=== PATIENT | female | born 1985 | race Caucasian/White ===

== ENCOUNTER 2016-07-02 19:11 | Emergency (ER) | payer OTHER ==
[2016-07-02 19:40] VITALS: RESP 18
[2016-07-02] MEDS ORDERED: ONDANSETRON ODT 4 MG TAB PO STA (20:04)
--- NOTE | 2016-07-02 20:07 | ED ---
Head Injury HPI - General Chief complaint: Head Injury Stated complaint: rt eye injury (baseball) Time Seen by Provider: 07/02/16 19:55 Source: patient, RN notes reviewed Mode of arrival: ambulatory Limitations: no limitations - History of Present Illness Initial comments: Patient is a 31-year-old female presents to the emergency room for evaluation of eye injury. Patient states yesterday she was playing baseball and was hit in the right eye with a baseball. Patient denies loss consciousness. Patient states her eye began to swell. Patient states she is having 5 out of 10 constant pain. Patient states today she is having continuing headache and nausea. Patient denies neck pain. Patient denies changes in vision. Patient denies ear pain or ringing in the ears. Patient states she was concerned about the nausea and headache so she decided to come here to be evaluated. Patient denies any other injuries during incident. Patient denies taking any blood thinners. - Related Data Home Medications Medication Instructions Recorded Confirmed Ibuprofen [Motrin] 800 mg PO DAILY PRN 07/02/16 07/02/16 Previous Rx's Medication Instructions Recorded Acetaminophen Tab [Tylenol Tab] 500 mg PO Q4H PRN #20 tablet 07/02/16 Ondansetron Odt [Zofran Odt] 4 mg PO Q8HR PRN #12 tab 07/02/16 Allergies/Adverse reactions: Allergies Allergy/AdvReac Type Severity Reaction Status Date / Time codeine phosphate Allergy Rash/Hives Verified 07/02/16 20:00 [From Tylenol-Codeine #3] chloraprep Allergy Rash/Hives Uncoded 07/02/16 19:39 Review of Systems ROS Statement: Those systems with pertinent positive or pertinent negative responses have been documented in the HPI. ROS Other: All systems not noted in ROS Statement are negative. Past Medical History Past Medical History: No Reported History History of Any Multi-Drug Resistant Organisms: None Reported Past Surgical History: Section Past Anesthesia/Blood Transfusion Reactions: No Reported Reaction Past Psychological History: Anxiety, Depression Smoking Status: Never smoker Past Alcohol Use History: None Reported Past Drug Use History: None Reported General Exam - General Exam Comments Initial Comments: Sitting in exam room, no acute distress. Limitations: no limitations General appearance: alert, in no apparent distress Eye exam: Present: PERRL, EOMI, periorbital tenderness, other (tenderness/edema on palpaing over inferior orbit and eccymosis surrounding the right eye. ) ENT exam: Present: normal exam, normal oropharynx, mucous membranes moist, TM's normal bilaterally, normal external ear exam Neck exam: Present: normal inspection Respiratory exam: Absent: respiratory distress Extremities exam: Present: normal inspection Back exam: Present: normal inspection Neurological exam: Present: alert, oriented X3, CN II-XII intact, normal gait Psychiatric exam: Present: normal affect, normal mood Skin exam: Present: warm, dry, intact, normal color. Absent: rash Course Vital Signs 07/02/16 19:36 Temperature 98.0 F Pulse Rate 88 Respiratory 18 Rate Blood Pressure 90/71 O2 Sat by Pulse 99 Oximetry Medical Decision Making - Medical Decision Making Patient is a 31-year-old female presents to the emergency room for evaluation of facial contusion from baseball. Patient complaining of nausea on continuing headache. Patient states she is feeling better after Zofran given. CT of brain and face negative for any acute findings. Sent patient home with Zofran advised to take Tylenol or Motrin for pain. Patient states she understands everything that was discussed with her. Return parameters discussed. Case discussed with Dr. Adams. - Radiology Data Radiology results: report reviewed, image reviewed Disposition Clinical Impression: Facial contusion Disposition: HOME SELF-CARE Condition: Good Instructions: Black Eye (ED), Head Injury (ED) Additional Instructions: Ice on and off for 10-15 minutes for the next 24-48 hours. Take Zofran as needed for nausea. Take Tylenol or Motrin as he for headache. Please follow- up with primary care provider for reevaluation in 24-48 hours.. If new symptoms develop or symptoms worsen, please return to the ER. Prescriptions: Ondansetron Odt [Zofran Odt] 4 mg PO Q8HR PRN #12 tab PRN Reason: Nausea Acetaminophen Tab [Tylenol Tab] 500 mg PO Q4H PRN #20 tablet PRN Reason: Pain Referrals: None,Stated [Primary Care Provider] - 1-2 days Time of Disposition: 21:04
--- NOTE | 2016-07-02 20:58 | CT ---
EXAMINATION TYPE: CT brain wo con DATE OF EXAM: 07/02/2016 8:52 PM COMPARISON: NONE HISTORY: Hit in right eye with baseball yesterday. Headache. CT DLP: 1470.00 mGycm Automated exposure control for dose reduction was used. FINDINGS: The ventricles and sulci appear normal. There is no mass effect nor midline shift. There is no sign o f intracranial hemorrhage. Calvarium is intact. IMPRESSION: Negative unenhanced head CT scan. No evidence of an orbital fracture.
--- NOTE | 2016-07-02 21:01 | CT ---
EXAMINATION TYPE: CT facial bones wo con DATE OF EXAM: 07/02/2016 8:52 PM COMPARISON: NONE HISTORY: Hit in right eye with baseball yesterday. Headache. CT DLP: 1470.00 mGycm Automated exposure control for dose reduction was used. TECHNIQUE: CT scan of the sinuses is performed without contrast, axial images are obtained, coronal r eformatted images are also reviewed. FINDINGS: The mandibular ring is intact. Zygomatic arches appear normal. Nasal bone appears intact. T here is mild mucosal thickening at the floor of the right maxillary sinus. There is no sign of a blow out fracture. There is no retro-orbital mass. There is mild soft tissue swelling anterior to the righ t zygoma. The globes are symmetric. IMPRESSION: There is right sided facial soft tissue swelling. No fracture seen. Minimal right maxilla ry sinusitis. No blowout fracture seen.
[2016-07-02 21:31] VITALS: BP 114/69; PULSE 83; TEMP 98.4
== END 2016-07-02 21:34 | disposition home or self-care (01) ==
LOC: EC 19:11
DX: S05.11XA Contusion of eyeball and orbital tissues, right eye, initial encounter (principal); R11.0 Nausea; Z88.5 Allergy status to narcotic agent; Z88.8 Allergy status to other drugs, medicaments and biological substances; W21.03XA Struck by baseball, initial encounter; Y93.64 Activity, baseball
CPT/HCPCS: 70450; 70486; 99283

== ENCOUNTER 2016-09-27 14:32 | Inpatient (IN) | payer MEDICAID, OTHER ==
--- NOTE | 2016-09-27 15:17 | ED ---
General Adult HPI - General Chief complaint: Psychiatric Symptoms Stated complaint: mental health Time Seen by Provider: 09/27/16 14:55 Source: patient Mode of arrival: ambulatory Limitations: no limitations - History of Present Illness Initial comments: She is a 31-year-old female with a past mental history of depression, self-harm behaviors and drug abuse. Patient came to the emergency department today because she is having suicidal thoughts. She states that she's been feeling that she is just "not good enough" and that she will never be happy again. She reports that these thoughts have led her to having suicidal thoughts. Patient denies any self-harm behaviors recently. She denies ever being inpatient for psychiatric care at this she states that she should have been here a long time ago to get help. Patient does state that she is currently under significant social stress because her boyfriend was recently arrested. Patient does admit to snorting methamphetamines last night. - Related Data Home Medications Medication Instructions Recorded Confirmed No Known Home Medications [No 09/27/16 09/27/16 Known Home Medications] Allergies Allergy/AdvReac Type Severity Reaction Status Date / Time codeine phosphate Allergy Rash/Hives Verified 09/27/16 15:15 [From Tylenol-Codeine #3] chloraprep Allergy Rash/Hives Uncoded 09/27/16 14:53 Review of Systems ROS Statement: Those systems with pertinent positive or pertinent negative responses have been documented in the HPI. ROS Other: All systems not noted in ROS Statement are negative. Constitutional: Denies: fever, chills Eyes: Denies: vision change Respiratory: Denies: cough, dyspnea Cardiovascular: Reports: palpitations. Denies: chest pain, dyspnea on exertion Endocrine: Denies: fatigue Gastrointestinal: Denies: abdominal pain, nausea, vomiting Genitourinary: Denies: urgency, dysuria, frequency, abnormal menses Musculoskeletal: Denies: back pain Skin: Denies: rash, lesions Neurological: Denies: headache, weakness, numbness, paresthesias Psychiatric: Reports: anxiety, depression. Denies: auditory hallucinations, visual hallucinations Hematological/Lymphatic: Denies: easy bleeding, easy bruising Past Medical History Past Medical History: No Reported History History of Any Multi-Drug Resistant Organisms: None Reported Past Surgical History: Section Additional Past Surgical History / Comment(s): c -section x3 Past Anesthesia/Blood Transfusion Reactions: No Reported Reaction Past Psychological History: Anxiety, Depression Smoking Status: Never smoker Past Alcohol Use History: None Reported, Occasional Past Drug Use History: Methamphetamine General Exam Limitations: no limitations General appearance: anxious Head exam: Present: atraumatic, normocephalic, normal inspection Eye exam: Present: PERRL Neck exam: Present: normal inspection. Absent: tenderness, meningismus, lymphadenopathy Respiratory exam: Present: normal lung sounds bilaterally. Absent: respiratory distress, wheezes, rales, rhonchi, stridor Cardiovascular Exam: Present: normal rhythm, tachycardia GI/Abdominal exam: Present: soft. Absent: distended, tenderness, guarding, rebound, rigid Rectal exam: Present: deferred Extremities exam: Present: full ROM Back exam: Present: normal inspection Neurological exam: Present: alert, oriented X3, CN II-XII intact Psychiatric exam: Present: depressed, agitated, anxious Skin exam: Present: warm, dry, intact Course Vital Signs 09/27/16 09/27/16 14:48 17:27 Temperature 97.3 F L 97.4 F L Pulse Rate 133 H 100 Respiratory 14 15 Rate Blood Pressure 132/96 124/77 O2 Sat by Pulse 98 99 Oximetry Medical Decision Making - Medical Decision Making Patient was seen and evaluated, history was obtained from patient Patient with suicidal thoughts, methamphetamine abuse Sitter at bedside Patient appears anxious, admits to methamphetamine use last night. Is noted to be tachycardic but denies chest pain, SOB or palpitations. Urinalysis, drug screen and test ordered Psych contacted to evaluate patient. Disposition Clinical Impression: Suicidal ideations Disposition: TRANSFER TO PSYCH HOSP/UNIT Condition: Good Referrals: None,Stated [Primary Care Provider] - 1-2 days Decision Date: 09/27/16 Decision Time: 17:43
[2016-09-27 18:41] LABS: Appearance,Urine Clear (Clear); Bilirubin,Urine Negative (Negative); Glucose,Urine (UA) Negative (Negative); Ketones,Urine 1+ (Negative); Leukocyte Esterase,Urine Negative (Negative); Nitrite,Urine Negative (Negative); Protein,Urine Negative (Negative); Specific Gravity,Urine 1.003 (1.001-1.035); UA Billing (MACRO vs. MICRO) CHEM; Urobilinogen,Urine <2.0 mg/dL (<2.0)
[2016-09-27] MEDS ORDERED: MAG HYDROX/AL HYDROX/SIMETH 30 ML CUP PO PRN (19:19)
[2016-09-27] MEDS ORDERED: ACETAMINOPHEN TAB 325 MG TAB PO PRN (19:19)
[2016-09-27] MEDS ORDERED: MAGNESIUM HYDROXIDE 2,400 MG/10 ML CUP PO PRN (19:19)
[2016-09-27] MEDS ORDERED: LORazepam 2 MG/ML SYRINGE IM PRN (19:21)
[2016-09-27] MEDS ORDERED: ZIPRASIDONE 20 MG VIAL IM PRN (19:22)
[2016-09-28 08:42] LABS: Basophils # (A) 0.1 k/uL (0-0.2); Basophils % (A) 1 %; CH 27.4; CHCM 32.2; Eosinophils # (A) 0.1 k/uL (0-0.7); Eosinophils % (A) 1 %; HCT 40.5 % (34.0-46.0); HGB 13.2 gm/dL (11.4-16.0); Luc # (Auto) 0.24; Luc % (Auto) 3; Lymphocytes % (A) 35 %; MCH 27.7 pg (25.0-35.0); MCHC 32.5 g/dL (31.0-37.0); MCV 85.2 fL (80.0-100.0); Mean Platelet Volume 6.8; Monocytes # (A) 0.5 k/uL (0-1.0); Monocytes % (A) 6 %; Neutrophils # (A) 4.8 k/uL (1.3-7.7); Neutrophils % (A) 55 %; RBC 4.75 m/uL (3.80-5.40); RDW 13.9 % (11.5-15.5); WBC 8.7 k/uL (3.8-10.6); WBC (Perox) 9.25
[2016-09-28 09:06] LABS: ALT 38 U/L (9-52); AST 28 U/L (14-36); Alkaline Phosphatase 63 U/L (38-126); Anion Gap 13 mmol/L; Blood Urea Nitrogen 14 mg/dL (7-17); Carbon Dioxide 25 mmol/L (22-30); Chloride 102 mmol/L (98-107); Glucose 101 mg/dL (74-99); Non-African American GFR(MDRD) >60 (>60 ml/min/1.73 sqM); Potassium 3.6 mmol/L (3.5-5.1); Sodium 140 mmol/L (137-145); Total Bilirubin 1.1 mg/dL (0.2-1.3)
[2016-09-28 10:05] LABS: Total Protein 7.5 g/dL (6.3-8.2)
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
[2016-09-28] MEDS: SERTRALINE 50 MG TAB PO SCH (11:57)
--- NOTE | 2016-09-28 15:33 | P.MDCNMH ---
History of Present Illness H&P Date: 09/28/16 Chief Complaint: Medical management This is a 31-year-old female with no primary care physician and past history of anxiety, depression, methamphetamine use. Patient states that she has been depressed with suicidal thoughts but did not act on these. TSH was 1.140. Urine drug screen was positive for amphetamines. HCG was not detected. Urinalysis was negative for UTI. She has been admitted to the mental health unit. Patient is noted to have skin lesion on her chin the right side along with rash to her chest and face. She states the chin area started as a blister and continued to worsen. Review of Systems All systems: negative Constitutional: Denies chills, Denies fever Eyes: denies blurred vision, denies pain Ears, nose, mouth and throat: Denies headache, Denies sore throat Cardiovascular: Denies chest pain, Denies shortness of breath Respiratory: Denies cough Gastrointestinal: Denies abdominal pain, Denies diarrhea, Denies nausea, Denies vomiting Genitourinary: Denies dysuria, Denies hematuria Musculoskeletal: Denies myalgias Integumentary: Reports wounds, Denies pruritus, Denies rash Neurological: Denies numbness, Denies weakness Psychiatric: Reports depression, Reports hopelessness, Reports suicidal ideation , Denies anxiety Endocrine: Denies fatigue, Denies weight change Past Medical History Past Medical History: No Reported History History of Any Multi-Drug Resistant Organisms: None Reported Past Surgical History: Section Additional Past Surgical History / Comment(s): c -section x3 Past Anesthesia/Blood Transfusion Reactions: No Reported Reaction Past Psychological History: Anxiety, Depression Smoking Status: Never smoker Past Alcohol Use History: None Reported, Occasional Additional Past Alcohol Use History / Comment(s): Patient states that she is a lifelong nonsmoker. She denies any medical marijuana. She does use methamphetamines which she states she is going to stop. She is single and has 3 children. Past Drug Use History: Methamphetamine - Past Family History Father Additional Family Medical History / Comment(s): Both parents alive in their 50s with no major medical problems. Patient has 1 brother and 1 sister with no major medical problems. Medications and Allergies Home Medications Medication Instructions Recorded Confirmed Type No Known Home Medications [No 09/27/16 09/27/16 History Known Home Medications] Allergies Allergy/AdvReac Type Severity Reaction Status Date / Time codeine phosphate Allergy Rash/Hives Verified 09/27/16 15:15 [From Tylenol-Codeine #3] chloraprep Allergy Rash/Hives Uncoded 09/27/16 14:53 Physical Exam Vitals: Vital Signs Temp Pulse Pulse Resp BP BP Pulse Ox 09/28/16 01:06 98.4 F 114 H 16 103/63 09/27/16 18:41 97.1 F L 16 99 09/27/16 18:27 99 F 82 18 132/83 99 09/27/16 17:27 97.4 F L 100 15 124/77 99 09/27/16 14:48 97.3 F L 133 H 14 132/96 98 Gen: This is a 31-year-old female. She appears to be in no acute distress. HEENT: Head is atraumatic, normocephalic. Pupils equal, round. Sclerae is anicteric. Skin lesion noted to the right chin with rash to her face and upper chest areas. NECK: Supple. No JVD. No lymphadenopathy. No thyromegaly. LUNGS: Clear to auscultation. No wheezes or rhonchi. No intercostal retractions. HEART: Regular rate and rhythm. No murmur. ABDOMEN: Soft. Bowel sounds are present. No masses. No tenderness. EXTREMITIES: No pedal edema. No calf tenderness. NEUROLOGICAL: Patient is awake, alert and oriented x3. Cranial nerves 2 through 12 are grossly intact. Cranial Nerve Examination - Cranial Nerves Cranial Nerve II- Optic: Intact Cranial Nerve III- Oculomotor: Intact Cranial Nerve IV- Trochlear: Intact Cranial Nerve V- Trigeminal: Intact Cranial Nerve - Abducens: Intact Cranial Nerve VII- Facial: Intact Cranial Nerve VIII- Auditory: Intact Cranial Nerve IX- Glossopharyngeal: Intact Cranial Nerve X- Vagus: Intact Cranial Nerve XI- Accessory: Intact Cranial Nerve XII- Hypoglossal: Intact Results CBC & Chem 7: 09/28/16 08:24 09/28/16 08:24 Labs: Abnormal Lab Results - Last 24 Hours (Table) 09/27/16 09/27/16 09/28/16 Range/Units 18:10 18:10 08:24 Glucose 101 H (74-99) mg/dL Urine Ketones 1+ H (Negative) Ur Amphetamine Screen Positive H (Negative) ng/mL Assessment and Plan Plan: 1. Recurrent depression. Patient admitted to the mental health unit. Continue current plan per psychiatrist. 2. Methamphetamine use. Continue as in #1. 3. Folliculitis on the face and upper chest. Patient has been instructed to wash with antibacterial soap and apply Bactroban and doxycycline 100 mg every day for couple weeks. 4. No smoking history. No need for nicotine patch. Impression and plan of care have been directed as dictated by the signing physician. Agnes Kapadia nurse practitioner acting as scribe for signing physician.
[2016-09-28] MEDS: DOXYCYCLINE 50 MG CAP PO SCH (16:17)
[2016-09-28] MEDS: LORazepam 1 MG TAB PO PRN (16:19)
[2016-09-28] MEDS: MUPIROCIN 2% OINT 22 GM TUBE TOPICAL SCH (22:24)
[2016-09-29] MEDS: MUPIROCIN 2% OINT 22 GM TUBE TOPICAL SCH ×3 (02:46→20:51)
[2016-09-29] MEDS ORDERED: hydrOXYzine PAMOATE 25 MG CAP PO PRN (09:55)
[2016-09-29] MEDS: DOXYCYCLINE 50 MG CAP PO SCH (09:55)
[2016-09-29] MEDS: SERTRALINE 50 MG TAB PO SCH (09:55)
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
[2016-09-29 13:41] VITALS: BMI 18.9
[2016-09-30] MEDS: DOXYCYCLINE 50 MG CAP PO SCH (08:40)
[2016-09-30] MEDS: SERTRALINE 50 MG TAB PO SCH (08:40)
[2016-09-30] MEDS: MUPIROCIN 2% OINT 22 GM TUBE TOPICAL SCH ×2 (08:40→22:24)
--- NOTE | 2016-09-30 10:08 | P.PN ---
Progress Note - Text Interval history: The patient is found in group she follows me to an interview room. She reports her mood is sad and angry and confused. She has had a second conversation with her boyfriend via phone. She states that he has been apologetic and wants to change how things have been done. Fortunately she remains skeptical and continues to verbalize that she should not continue in this relationship. She feels safe here in the hospital but does not feel strong enough yet to be discharged him deal with her stressors. She continues to feel sad that this relationship cannot reconcile and be healthy. We discussed the medication specifically the Zoloft and the Vistaril. She feels the Vistaril provided some mild benefit. We discussed titrating the Zoloft further to 100 mg daily to prove our chances of efficacy in terms of her anxiety symptoms. Mental status exam: The patient is alert she is dressed in her own clothing and is carrying around a hospital blanket. She is thin. Hygiene appears adequate. She has numerous healing skin lesions visible on her face and upper chest. Eye contact is appropriate. Speech is soft slow. If you times I have to have her repeat herself. She endorses a sad mood she continues to feel overwhelmed at times she feels angry. Insight and judgment limited. She presented with suicidal ideation but states that she feels safe here in the hospital but does not yet feel safe leaving. There is no evidence of psychosis hypomania or melodie. Plan: The patient's will continue on her current medication we will titrate the Zoloft to 100 mg daily continue Vistaril as written. She is encouraged to not use the Ativan and less urgently needed. Vital signs reviewed. Oral intake including hydration is encouraged again. We will monitor her for safety.
[2016-10-01] MEDS: DOXYCYCLINE 50 MG CAP PO SCH (09:18)
[2016-10-01] MEDS: MUPIROCIN 2% OINT 22 GM TUBE TOPICAL SCH ×2 (09:19→21:33)
[2016-10-01] MEDS: SERTRALINE 100 MG TAB PO SCH (09:19)
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
[2016-10-02 00:02] VITALS: BP 100/59; PULSE 67; RESP 16; TEMP 97.8
[2016-10-02] MEDS: LORazepam 1 MG TAB PO PRN (01:53)
[2016-10-02] MEDS: SERTRALINE 100 MG TAB PO SCH (08:49)
[2016-10-02] MEDS: MUPIROCIN 2% OINT 22 GM TUBE TOPICAL SCH (08:49)
[2016-10-02] MEDS: DOXYCYCLINE 50 MG CAP PO SCH (08:49)
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
== END 2016-10-02 09:59 | disposition home or self-care (01) | DRG 885 ==
LOC: EC 14:32 → 3MHU 17:55
PROVIDERS: ADMIT Psychiatry & Neurology Psychiatry; ATTEND Psychiatry & Neurology Psychiatry
DX: F33.2 Major depressive disorder, recurrent severe without psychotic features (principal); R45.851 Suicidal ideations; F15.10 Other stimulant abuse, uncomplicated; F41.0 Panic disorder [episodic paroxysmal anxiety]; Z79.899 Other long term (current) drug therapy; Z81.8 Family history of other mental and behavioral disorders; Z88.5 Allergy status to narcotic agent
CPT/HCPCS: 80053; 80306; 81003; 81025; 82075; 84443; 85025